=== PATIENT | male | born 1950 | race Caucasian/White ===

== ENCOUNTER 2016-11-02 13:15 | Emergency (ER) | payer OTHER ==
[~2016-11-02] VITALS: Ht 177.8 cm; Wt 70.0 kg
[2016-11-02 13:17] VITALS: BP 136/78
[2016-11-02] MEDS ORDERED: LIDOCAINE 1%, 20ML ONE (13:42)
[2016-11-02] MEDS ORDERED: LIDOCAINE 1%, 20ML INFIL ONE (14:00)
[2016-11-02] MEDS ORDERED: BACITRACIN ZINC OINT 500U/GM, 0.9 GM ONE (14:54)
== END 2016-11-02 15:18 | disposition home or self-care (01) ==
LOC: ED 15:00
DX: S81.012A Laceration without foreign body, left knee, initial encounter (principal); S83.92XA Sprain of unspecified site of left knee, initial encounter; W19.XXXA Unspecified fall, initial encounter; Y93.89 Activity, other specified; Y92.89 Other specified places as the place of occurrence of the external cause; Y99.8 Other external cause status
CPT/HCPCS: 12001

== ENCOUNTER 2018-01-20 15:53 | Emergency (ER) | payer OTHER ==
[~2018-01-20] VITALS: Ht 177.8 cm; Wt 70.6 kg
[2018-01-20 15:56] VITALS: BP 149/91
[2018-01-20] MEDS ORDERED: DIPH,PERTUSS(ACELL),TET VAC/PF 0.5 ML IM-VACC ONE ×2 (16:30→17:43)
[2018-01-20] MEDS ORDERED: BACITRACIN ZINC OINT 500U/GM, 0.9 GM ONE (16:45)
== END 2018-01-20 18:01 | disposition home or self-care (01) ==
LOC: ED 17:41
DX: S51.831A Puncture wound without foreign body of right forearm, initial encounter (principal); L03.113 Cellulitis of right upper limb; W54.0XXA Bitten by dog, initial encounter; Y93.89 Activity, other specified; Y92.098 Other place in other non-institutional residence as the place of occurrence of the external cause; Y99.8 Other external cause status
CPT/HCPCS: 90471; 90715; 99284